=== PATIENT | female | born 1980 | race Caucasian/White ===

== ENCOUNTER 2018-04-12 23:12 | Emergency (ER) | payer SELFPAY ==
[~2018-04-12] VITALS: Ht 152.4 cm; Wt 83.9 kg
[2018-04-12 23:22] VITALS: Ht 152.4 cm; Wt 83.9 kg
[2018-04-13 00:06] VITALS: BP 107/66
== END 2018-04-13 01:37 | disposition home or self-care (01) ==
LOC: ED 23:12
DX: S29.012A Strain of muscle and tendon of back wall of thorax, initial encounter (principal); S39.012A Strain of muscle, fascia and tendon of lower back, initial encounter; V49.88XA Car occupant (driver) (passenger) injured in other specified transport accidents, initial encounter; Y93.I9 Activity, other involving external motion; Y92.413 State road as the place of occurrence of the external cause; Y99.8 Other external cause status